=== PATIENT | female | born 1965 | race Caucasian/White ===

== ENCOUNTER 2016-07-28 20:01 | Emergency (ER) | payer OTHER ==
[~2016-07-28] VITALS: Ht 152.4 cm; Wt 40.8 kg
[2016-07-28] MEDS ORDERED: HYDROCODONE/APAP 10/325MG 1 EA TABLET PO ONE (21:30)
[2016-07-28] MEDS ORDERED: ONDANSETRON 4 MG TAB.RAPDIS PO ONE (21:30)
[2016-07-28] MEDS ORDERED: HYDROCODONE/APAP 10/325MG 1 EA TABLET ONE (21:34)
[2016-07-28] MEDS ORDERED: ONDANSETRON 4 MG TAB.RAPDIS ONE (21:34)
[2016-07-28 23:36] VITALS: BP 134/76
== END 2016-07-28 23:37 | disposition home or self-care (01) ==
LOC: ER 20:05
DX: S52.022A Displaced fracture of olecranon process without intraarticular extension of left ulna, initial encounter for closed fracture (principal); B19.20 Unspecified viral hepatitis C without hepatic coma; F17.210 Nicotine dependence, cigarettes, uncomplicated; Z90.49 Acquired absence of other specified parts of digestive tract; W19.XXXA Unspecified fall, initial encounter; Y93.89 Activity, other specified; Y92.89 Other specified places as the place of occurrence of the external cause; Y99.8 Other external cause status
CPT/HCPCS: 29105; 73080; 99284; A4606; Q0162; Z7610

== ENCOUNTER 2017-12-15 23:11 | Inpatient (IN) | payer OTHER ==
[~2017-12-15] VITALS: Ht 152.4 cm; Wt 44.0 kg
--- NOTE | 2017-12-15 23:20 | NUR ---
52 yo female bb self. patient is alert and oriented, c/o left arm abcess s/p IV drug use. patient ambulated to er bed with steady agit, skin warm and dry, resp even and unlabored. patient gowned,placed on cardiac monitor technician. awaiting orders from provider, will continue to monitor
--- NOTE | 2017-12-15 23:28 | NUR ---
md Pedraza at bed side for eval
[2017-12-15] MEDS ORDERED: VANCOMYCIN 1 GM in IV D5W 250 ML IV ONE (23:30)
--- NOTE | 2017-12-16 00:51 | NUR ---
20G left fa iv started, blood sample obtained and sent to lab
[2017-12-16] MEDS ORDERED: VANCOMYCIN 1 GM VIAL ONE (00:52)
[2017-12-16 00:56] LABS: BASOPHILS % (AUTO) 0.3 % (0.0-2.0); EOSINOPHILS % (AUTO) 1.9 % (0.0-6.0); HEMATOCRIT 36 % (33-45); HEMOGLOBIN 12.2 g/dL (11.5-14.8); LYMPHOCYTES # (AUTO) 1.4 /CMM (0.8-4.8); LYMPHOCYTES % (AUTO) 25.1 % (20.0-44.0); MEAN CORPUSCULAR HEMOGLOBIN 28 PG (26.0-33.0); MEAN CORPUSCULAR HGB CONC 33 g/dl (31.0-36.0); MEAN CORPUSCULAR VOLUME 84 fL (82-100); MONOCYTES # (AUTO) 0.7 /CMM (0.1-1.30); MONOCYTES % (AUTO) 11.6 % (2.0-12.0); NEUTROPHILS # (AUTO) 3.5 /CMM (1.8-8.9); NEUTROPHILS % (AUTO) 61.1 % (43.0-81.0); PLATELET COUNT (AUTO) 145 /CMM (150-450); RDW COEFFICIENT OF VARIATION 13.7 (11.5-15.0); RED BLOOD CELL COUNT(AUTO) 4.33 MIL/uL (4.0-5.2); WHITE BLOOD COUNT (AUTO) 5.7 K/uL (4.3-11.0)
[2017-12-16 01:07] LABS: CALCIUM, SERUM 8.4 mg/dL (8.5-10.1); CARBON DIOXIDE 29 mmol/L (21-32); CHLORIDE 105 mmol/L (98-107); CREATININE 1.1 mg/dL (0.6-1.3); GLUCOSE 132 mg/dL (74-106); POTASSIUM 3.1 mmol/L (3.5-5.1); SODIUM SERUM 140 mmol/L (136-145); UREA NITROGEN, BLOOD 36 mg/dL (7-18)
[2017-12-16] MEDS ORDERED: ACETAMINOPHEN 325 MG TABLET PO PRN (01:30)
[2017-12-16] MEDS ORDERED: Z GUARD REMEDY 2 OZ OINT TP PRN (01:30)
[2017-12-16] MEDS ORDERED: LORAZEPAM INJ 2 MG/ML VIAL IV PRN (01:30)
[2017-12-16] MEDS ORDERED: MAGNESIUM HYDROXIDE 30 ML UDC PO PRN (01:30)
[2017-12-16] MEDS ORDERED: VANCOMYCIN 1 GM in IV NS 0.9% 250 ML IV SCH (01:30)
[2017-12-16] MEDS ORDERED: ZOLPIDEM TARTRATE 5 MG TABLET PO PRN (01:30)
[2017-12-16] MEDS ORDERED: POTASSIUM CHLORIDE 20 MEQ TAB.PRT.SR PO ONE ×3 (01:30→01:49)
[2017-12-16] MEDS ORDERED: ONDANSETRON HCL/PF 4 MG/2 ML VIAL IVP PRN (01:30)
[2017-12-16] MEDS ORDERED: HYDROCODONE/APAP 5/325MG 1 EACH TABLET PO PRN (01:30)
[2017-12-16] MEDS ORDERED: MAG HYDROX/AL HYDROX/SIMETH 30 ML UDC PO PRN (01:30)
[2017-12-16] MEDS ORDERED: MORPHINE SULFATE INJ 4 MG/ML DISP.SYRIN ONE (01:47)
[2017-12-16] MEDS: MORPHINE SULFATE INJ 2 MG/ML DISP.SYRIN IV PRN (01:59)
--- NOTE | 2017-12-16 02:15 | NUR ---
RN NOTE RECEIVED PATIENT FROM ER, PATIENT WAS ABLE TO AMBULATE FROM [facility] RO THE BED WITH A STEADY GAIT, ON ROOM AIR, NO RESPIRATORY DISTRESS NOTED, NO PAIN OR DISCOMFORT NOTED, PATIENT IS ALERT/ORIENTED X 4, IV SITE IS PATENT, NO S/S OF INFECTION/INFLAMMATION NOTED, DX CELLULITIS, WOUND CARE CONSULT ORDERED, KEPT SITE CLEANED AND DRY, PICTURE OF THE WOUND IS TAKEN AND PLACED IN THE CHART, VITAL SIGNS TAKEN AND RECORDED, ALL SAFETY MEASURES TAKEN, CALL LIGHT WITHIN REACH, ALL BELONGINGS WITHIN REACH, BED IN THE LOWEST POSITION, SIDE RAILS UP X 2, WILL CONTINUE TO MONITOR PATIENT
--- NOTE | 2017-12-16 02:25 | NUR ---
TRANSPORTED PT TO MS BED WITHOUT INCIDENT
[2017-12-16 03:59] LABS: BILIRUBIN,DIRECT 0.1 mg/dL (0.0-0.2); BILIRUBIN,TOTAL 0.5 mg/dL (0.2-1.0)
[2017-12-16 04:00] VITALS: BP 120/56
[2017-12-16] MEDS ORDERED: FEE PK DOSING 1 MIN EA MC ONE (06:54)
--- NOTE | 2017-12-16 07:30 | NUR ---
RN M/S INITIAL NOTES: RECEIVED PT IN BED SLEEPING, EASY TO AROUSE. NO C/O PAIN OR DISCOMFORT AT THIS TIME. PT ON ROOM AIR, NO SOB NOTED. IV TO LFA PATENT AND INTACT. BED IN LOW LOCKED POSITION, CALL LIGHT WITHIN REACH. PLAN OF CARE DISCUSSED WITH PT. WILL CONTINUE TO MONITOR.
[2017-12-16 08:00] VITALS: BP 134/75
[2017-12-16] MEDS ORDERED: METH10TA2 PO (09:06)
[2017-12-16] MEDS: IV NS 0.9% 1,000 ML IV PRN (10:58)
--- NOTE | 2017-12-16 11:00 | NUR ---
SCHOOL PSYCHOLOGY PROFESSOR AT BEDSIDE FOR PT ASSESSMENT.
[2017-12-16] MEDS: VANCOMYCIN 500 MG in IV D5W 100 ML IV SCH ×2 (11:18→23:08)
--- NOTE | 2017-12-16 13:00 | NUR ---
ID DIRECTOR OF GOLF AT BEDSIDE FOR PT ASSESSMENT
[2017-12-16 14:34] LABS: APPEARANCE,URINE CLEAR (CLEAR); BILIRUBIN,URINE NEGATIVE (NEGATIVE); BLOOD, URINE NEGATIVE Ery/uL (NEGATIVE); COLOR,URINE YELLOW (YELLOW); KETONES,URINE NEGATIVE (NEGATIVE); LEUKOCYTE ESTERASE ,URINE TRACE (NEGATIVE); NITRITE, URINE NEGATIVE (NEGATIVE); PROTEIN,URINE NEGATIVE (NEGATIVE); UGLUCOSE TRACE mg/dL (NEGATIVE); UROBILINOGEN,URINE >=8.0 EU/dL (0.2)
[2017-12-16 14:55] LABS: BACTERIA,URINE 2+ /HPF (None Seen); RBC,URINE 0-2 /HPF (0-2)
[2017-12-16 16:00] VITALS: BP 122/60
[2017-12-16] MEDS ORDERED: VANCOMYCIN 0.75 GM in IV D5W 250 ML IV SCH (18:00)
--- NOTE | 2017-12-16 19:00 | NUR ---
RN M/S END NOTES: PT REMAINS IN BED AT THIS TIME, SLEEPING BUT EASY TO AROUSE. DENIES ANY PAIN OR DISCOMFORT. REMAINS ON ROOM AIR, SATURATING >95%. NO SOB NOTED AT THIS TIME. IV FLUIDS RUNNING TO LFA ORDERED. BED IN LOW LOCKED POSITION, CALL LIGHT WITHIN REACH. WILL ENDORSE TO PM SHIFT FOR CONTINUITY OF CARE.
[2017-12-16 20:00] VITALS: BP 122/60
--- NOTE | 2017-12-16 20:00 | NUR ---
PRABHJOT RN NOTES RECEIVED BEDSIDE REPORT FROM AM NURSE. PT IN BED A/O X4, NO C/O PAIN OR DISCOMFORT AT THIS TIME. PT ON ROOM AIR, NO SOB NOTED AT THIS TIME.IV TO LFA PATENT AND INTACT. BED IN LOW LOCKED POSITION, CALL LIGHT WITHIN REACH. WILL CONTINUE TO MONITOR.
[2017-12-16] MEDS: SULFAMETH/TRIMETH 800/160 MG 1 UDTAB TABLET PO SCH (21:36)
[2017-12-17] MEDS: IV NS 0.9% 1,000 ML IV PRN ×2 (01:58→17:45)
[2017-12-17 04:00] VITALS: BP 118/75
--- NOTE | 2017-12-17 05:40 | NUR ---
PRABHJOT RN NOTES PT IS IN BED AT THIS TIME, SLEEPING BUT EASY TO AROUSE. DENIES ANY PAIN OR DISCOMFORT AT THIS TIME. REMAINS ON ROOM AIR, SATURATING >95%. NO SOB NOTED AT THIS TIME. IV FLUIDS RUNNING TO LFA ORDERED. BED IN LOW LOCKED POSITION, CALL LIGHT WITHIN REACH. WILL ENDORSE TO AM SHIFT FOR NORMA.
[2017-12-17 06:25] LABS: CALCIUM, SERUM 7.7 mg/dL (8.5-10.1); CREATININE 0.8 mg/dL (0.6-1.3); MAGNESIUM 1.5 mg/dL (1.8-2.4); PHOSPHORUS 3.9 mg/dL (2.5-4.9)
[2017-12-17 06:38] LABS: BASOPHILS % (AUTO) 0.4 % (0.0-2.0); EOSINOPHILS % (AUTO) 1.9 % (0.0-6.0); HEMATOCRIT 34 % (33-45); HEMOGLOBIN 11.3 g/dL (11.5-14.8); LYMPHOCYTES # (AUTO) 1.3 /CMM (0.8-4.8); LYMPHOCYTES % (AUTO) 29.2 % (20.0-44.0); MEAN CORPUSCULAR HEMOGLOBIN 28 PG (26.0-33.0); MEAN CORPUSCULAR HGB CONC 33 g/dl (31.0-36.0); MEAN CORPUSCULAR VOLUME 85 fL (82-100); MONOCYTES # (AUTO) 0.5 /CMM (0.1-1.30); MONOCYTES % (AUTO) 11.1 % (2.0-12.0); NEUTROPHILS # (AUTO) 2.7 /CMM (1.8-8.9); NEUTROPHILS % (AUTO) 57.4 % (43.0-81.0); PLATELET COUNT (AUTO) 125 /CMM (150-450); RDW COEFFICIENT OF VARIATION 13.9 (11.5-15.0); RED BLOOD CELL COUNT(AUTO) 4.06 MIL/uL (4.0-5.2); WHITE BLOOD COUNT (AUTO) 4.6 K/uL (4.3-11.0)
--- NOTE | 2017-12-17 07:30 | NUR ---
RN NOTES RECEIVED PATIENT IN BED ASLEEP WITH BREATHING NORMAL, EVEN AND UNLABORED. NO SOB NOTED. NO ACUTE DISTRESS NOTED. IV IS PATENT AND INTACT, RUNNING IVF PER ORDER. KEPT CLEAN, DRY AND COMFORTABLE. ALL NEEDS ATTENDED. SAFETY MEASURE OBSERVED. CALL LIGHT WITH IN REACH. WILL CONT TO MONITOR.
[2017-12-17 08:00] VITALS: BP 127/66
[2017-12-17] MEDS: SULFAMETH/TRIMETH 800/160 MG 1 UDTAB TABLET PO SCH ×2 (08:53→21:12)
[2017-12-17] MEDS: NICOTINE PATCH (14MG) 14 MG PATCH.TD24 TD SCH (08:53)
[2017-12-17 09:00] VITALS: BP 127/66
--- NOTE | 2017-12-17 09:31 | NUR ---
WOUND CARE CONSULT: PT PRESENTS WITH LEFT UPPER ARM WOUND, PRESENT ON ADMISSION. RECOMMEND SURGICAL CONSULT. RECOMMENDATIONS MADE FOR WOUND CARE AND SKIN PROTECTION. DISCUSSED WITH NURSING STAFF. WILL SEE PRN. KRAFT IN AGREEMENT WITH PLAN OF CARE. Addendum: 12/17/17 at 0932 by JESSICA JASMINE WNDNU Amended: Links added.
[2017-12-17] MEDS ORDERED: LIDOCAINE 1%-EPI 1:100,000 20 ML VIAL TP ONE (11:00)
[2017-12-17] MEDS ORDERED: SILVER NITRATE APPLICATOR 1 EA BOX TP SCH (11:00)
[2017-12-17] MEDS: VANCOMYCIN 500 MG in IV D5W 100 ML IV SCH ×2 (11:43→22:47)
[2017-12-17] MEDS: Magnesium 1GM/D5W 100ML PREMIX 100 ML IV SCH ×2 (13:07→15:05)
[2017-12-17] MEDS: MORPHINE SULFATE INJ 2 MG/ML DISP.SYRIN IV PRN ×2 (15:06→21:13)
[2017-12-17 16:00] VITALS: BP 125/62
--- NOTE | 2017-12-17 16:09 | NUR ---
Social service consult requested by JARED An for drug use. Pt. is a 52 year old female who was admitted to [facility] for cellulitis. SW met with pt. bedside. Pt. is alert and oriented x 4. Pt. was cooperative with SW during the assessment. Per Pt. she lives with friend's in an apartment in [place]. Pt. has a psychiatric diagnosis of Bipolar but does not take any medications. Pt. denies suicidal and homicidal ideations and visual/auditory hallucinations at this time. Pt. is a heroin user and used heroin two weeks ago. Pt. states she has been on Methadone for the past two months. SW offered pt. referrals to drug treatment programs and tried to encourage pt. to attend one. However, pt. declined. Pt. last attended a drug treatment program 4 or 5 years ago. No other social service needs are requested at this time. SW is available, if needed.
[2017-12-17 16:53] VITALS: BP 125/56
--- NOTE | 2017-12-17 18:53 | NUR ---
RN NOTES PATIENT ENDORSED TO NEXT SHIFT IN STABLE CONDITION FOR CONTINUITY OF CARE. NO SIGNIFICANT CHANGES NOTED. KEPT CLEAN, DRY AND COMFORTABLE. ALL NEEDS ATTENDED. SAFETY MEASURE OBSERVED. CALL LIGHT WITH IN REACH. WILL CONT TO MONITOR.
--- NOTE | 2017-12-17 19:00 | NUR ---
MS RN OPENING NOTE RECEIVE PATIENT AWAKE IN BED, A/O X3, STABLE NO FACIAL GRIMACING NOTED FOR PAIN. NO SOB OR DISTRESS NOTED, CALL LIGHT WITHIN REACH. SAFETY MEASURES IMPLEMENTED. WILL CONTINUE TO MONITOR THROUGHOUT SHIFT.
[2017-12-17 20:00] VITALS: BP 126/74
[2017-12-18] MEDS: MORPHINE SULFATE INJ 2 MG/ML DISP.SYRIN IV PRN ×4 (03:28→22:46)
[2017-12-18 04:00] VITALS: BP 132/80
--- NOTE | 2017-12-18 06:18 | NUR ---
MS RN CLOSING NOTES IN BED ASLEEP AND EASILY AWAKEN, NO COMPLAINTS OF PAIN, NO DISTRESS OR SOB AT THIS TIME. NO COMPLAINTS OF CHEST PAIN. NURSING CARE RENDERED. NEEDS ATTENDED, SAFETY PRECAUTIONS IN PLACE, BED IN LOWEST LOCKED POSITION, X2 SIDE RAILS UP, AND CALL LIGHT WITHIN REACH. WILL ENDORSE TO DAY SHIFT NURSE FOR CONTINUITY OF CARE.
[2017-12-18 07:07] LABS: BASOPHILS % (AUTO) 0.4 % (0.0-2.0); EOSINOPHILS % (AUTO) 1.6 % (0.0-6.0); HEMATOCRIT 36 % (33-45); LYMPHOCYTES # (AUTO) 2.1 /CMM (0.8-4.8); LYMPHOCYTES % (AUTO) 31.3 % (20.0-44.0); MEAN CORPUSCULAR HEMOGLOBIN 28 PG (26.0-33.0); MEAN CORPUSCULAR HGB CONC 33 g/dl (31.0-36.0); MEAN CORPUSCULAR VOLUME 84 fL (82-100); MONOCYTES # (AUTO) 0.6 /CMM (0.1-1.30); MONOCYTES % (AUTO) 8.8 % (2.0-12.0); NEUTROPHILS # (AUTO) 3.9 /CMM (1.8-8.9); NEUTROPHILS % (AUTO) 57.9 % (43.0-81.0); PLATELET COUNT (AUTO) 123 /CMM (150-450); RDW COEFFICIENT OF VARIATION 14.7 (11.5-15.0); RED BLOOD CELL COUNT(AUTO) 4.27 MIL/uL (4.0-5.2); WHITE BLOOD COUNT (AUTO) 6.7 K/uL (4.3-11.0)
[2017-12-18 07:27] LABS: ALBUMIN 2.2 g/dL (3.4-5.0); CALCIUM, SERUM 7.7 mg/dL (8.5-10.1); CREATININE 0.8 mg/dL (0.6-1.3); MAGNESIUM 1.8 mg/dL (1.8-2.4); PHOSPHORUS 3.9 mg/dL (2.5-4.9); POTASSIUM 4.3 mmol/L (3.5-5.1)
--- NOTE | 2017-12-18 07:30 | NUR ---
DOLPHIN RESEARCHER INITIAL NOTES RECEIVED PATIENT SLEEPING IN BED, EASILY AROUSABLE, ON ROOM AIR, NO DISTRESS NOTED, NO SOB, NO PAIN AT THIS TIME, RACHEAL CELLULITES, IV R HAND 22G, NS @ 75 ML/HR, BED IN LOW AND LOCKED POSITION, CALL LIGHT WITHIN REACH, WILL CONTINUE TO MONITOR.
[2017-12-18 08:00] VITALS: BP 143/76
[2017-12-18] MEDS: SULFAMETH/TRIMETH 800/160 MG 1 UDTAB TABLET PO SCH (09:00)
[2017-12-18] MEDS: NICOTINE PATCH (14MG) 14 MG PATCH.TD24 TD SCH (09:00)
[2017-12-18] MEDS: METHADONE HCL 10 MG TABLET PO SCH (09:26)
[2017-12-18] MEDS: VANCOMYCIN 500 MG in IV D5W 100 ML IV SCH (11:15)
[2017-12-18 16:00] VITALS: BP 143/66
[2017-12-18] MEDS ORDERED: SULF1TAB47 PO (16:28)
[2017-12-18] MEDS ORDERED: CEPH-570 PO (16:28)
--- NOTE | 2017-12-18 18:32 | NUR ---
STATION ATTENDANT END NOTES PATIENT RESTING IN BED, PAIN MEDICATIONS GIVEN NEEDED, WOUND CARE DONE, ALL NEEDS MET ALL QUESTIONS ANSWERED, WILL ENDORSE TO DISPLAY DECORATOR FOR CONTINUITY OF CARE.
--- NOTE | 2017-12-18 19:30 | NUR ---
MS/RN OPENING NOTES PT RECEIVED AWAKE, HOB ELEVATED. VISITOR AT BEDSIDE. A/OX4. ON ROOM AIR, BREATHING EVEN AND UNLABORED. DENIES SOB, NOTES SOME PAIN TO RACHEAL 09/22, OFFERED PAIN MEDICATION BUT DOES NOT WANT AT THIS TIME. RACHEAL DRESSING C/D/I. IV TO RFA PATENT AND INTACT, IVF ON HOLD AT THIS TIME. PT REQUESTING TO RESTART FLUIDS ALITTLE LATER. BED IN LOW/LOCKED POSITION WITH CALL LIGHT IN REACH. SIDE RAILS UPX2. WILL CONTINUE TO MONITOR
[2017-12-18 20:00] VITALS: BP 149/85
[2017-12-18] MEDS: AMOX/CLAVULANATE 875 MG TABLET PO SCH (20:36)
--- NOTE | 2017-12-18 21:04 | NUR ---
MS/RN NOTES PT WENT TO SMOKE WITH VISITOR AND RIVETER HELPER.
--- NOTE | 2017-12-18 22:47 | NUR ---
MS/RN NOTES PT C/O 01/22 PAIN TO [facility]. ADMINISTERED PRN MORPHINE ORDERED. WILL MONITOR FOR EFFECTIVENESS. IVF RESUMED ORDERED
[2017-12-19 04:00] VITALS: BP 146/64
--- NOTE | 2017-12-19 06:40 | NUR ---
MS/RN CLOSING NOTES PT RESTING COMFORTABLY IN BED. A/OX4. REMAINS ON RA, BREATHING EVEN AND UNLABORED. NO DISTRESS OR PAIN NOTED AT THIS TIME. RACHEAL DRESSING C/D/I. IV TO RFA PATENT AND INTACT. NO SIGNIFICANT CHANGES OVERNIGHT. SLEPT WELL DURING THE NIGHT. FOR DC PLANNING TODAY. BED IN LOW/LOCKED POSITION WITH CALL LIGHT IN REACH. SIDE RAILS UXP2. WILL ENDORSE TO DAY SHIFT RN NORMA.
--- NOTE | 2017-12-19 07:45 | NUR ---
MS RN NOTE: RECEIVED PATIENT IN BED, AWAKE, ALERT AND ABLE TO VERBALIZED HER NEEDS. RESPIRATION IS EVEN AND UNLABORED. NO SHORTNESS OF BREATH NOTED. ABLE TO USE THE TOILET. (R) FORE ARM IV LINE INTACT AND PATENT INFUSING WITH NS @75ML/HR. DENIED ANY PAIN AT THIS TIME. HOB ELEVATED. CALL LIGHT WITHIN REACH. NEEDS ANTICIPATED.
[2017-12-19 08:00] VITALS: BP 139/72
[2017-12-19] MEDS: NICOTINE PATCH (14MG) 14 MG PATCH.TD24 TD SCH (08:31)
[2017-12-19] MEDS: AMOX/CLAVULANATE 875 MG TABLET PO SCH (08:31)
[2017-12-19] MEDS: METHADONE HCL 10 MG TABLET PO SCH (08:32)
[2017-12-19] MEDS ORDERED: AMOX-430 PO (10:52)
[2017-12-19] MEDS ORDERED: LACT1CAP72 PO (10:52)
--- NOTE | 2017-12-19 13:20 | NUR ---
MS RN NOTE: PATIENT WAS DISCHARGED TO HOME AND EXIT CARE WAS PROVIDED. ALL DISCHARGE INSTRUCTION WAS PROVIDED AND PATIENT SIGNED HER DISCHARGE PAPERWORK. EMPHASIZED WITH HER THE IMPORTANCE OF FOLLOWING-UP WITH HER PCP IN 1 WEEK. SHE WAS ALSO GIVEN MEDICAL SUPPLIES IN ORDER TO CLEAN UP HER (L) UA WOUND UNTIL SHE GETS TO SEE THE PRIMARY DOCTOR. PATIENT HAS NO QUESTIONS REGARDING HER DISCHARGE. REFUSED THE VACCINE. (L) UA WOUND WAS TAKEN PICTURE AND FILED ON THE CHART. WOUND TREATMENT DONE AND PATIENT TOLERATED IT. (R) FOREARM IV LINE REMOVED AND COVERED WITH DRY GAUZE AND SECURED WITH TAPE. PATIENT WAS ACCOMPANIED BY HER EX- UPON DISCHARGE VIA PRIVATE CAR. ALL BELONGINGS WERE RELEASED UPON DISCHARGE. PATIENT WAS AWARE THAT SHE NEEDS TO PICK-UP HER PRESCRIPTION AT THE [facility] LISTED ON HER RECORD. SHE UNDERSTOOD IT.
== END 2017-12-19 13:20 | disposition home or self-care (01) | DRG 364 ==
LOC: ER 23:14 → MEDSG1 12-16 01:55
PROVIDERS: ADMIT Internal Medicine; ATTEND Internal Medicine
PROC: 0KB60ZZ Excision of Left Shoulder Muscle, Open Approach (ICD-10-PCS; principal; 2017-12-17)
DX: L03.114 Cellulitis of left upper limb (principal); E87.2 Acidosis; N39.0 Urinary tract infection, site not specified; L02.414 Cutaneous abscess of left upper limb; E87.6 Hypokalemia; E86.0 Dehydration; F17.210 Nicotine dependence, cigarettes, uncomplicated; R73.9 Hyperglycemia, unspecified; Z86.19 Personal history of other infectious and parasitic diseases; F19.10 Other psychoactive substance abuse, uncomplicated; F11.10 Opioid abuse, uncomplicated; V89.2XXS Person injured in unspecified motor-vehicle accident, traffic, sequela; G89.29 Other chronic pain; B96.89 Other specified bacterial agents as the cause of diseases classified elsewhere; E44.1 Mild protein-calorie malnutrition; Z68.1 Body mass index [BMI] 19.9 or less, adult
CPT/HCPCS: 36415; 80048-TC; 80202-TC; 81000-TC; 82040-TC; 82247-TC; 82248-TC; 83605-TC; 83735-TC; 84100-TC; 85025-TC; 87040-TC; 87070-TC; 87081-TC; 87086-TC; A4217; A4606; A6253; A6402; A6403; J2270; J3370; J3475; J3490; J7030; J7050; J7060; Z7610

== ENCOUNTER 2018-11-01 20:41 | Emergency (ER) ==
[~2018-11-01] VITALS: Ht 152.4 cm; Wt 36.3 kg
[~2018-11-01 20:41] MED LIST: AMOX-430 PO; LACT1CAP72 PO; METH10TA2 PO
[2018-11-01 21:04] VITALS: BP 154/98
== END 2018-11-01 23:46 | disposition home or self-care (01) ==
LOC: ER 20:50
DX: L03.114 Cellulitis of left upper limb (principal); L02.414 Cutaneous abscess of left upper limb; F19.10 Other psychoactive substance abuse, uncomplicated; F11.10 Opioid abuse, uncomplicated; F17.210 Nicotine dependence, cigarettes, uncomplicated; Z86.19 Personal history of other infectious and parasitic diseases

== ENCOUNTER 2019-07-19 15:32 | Emergency (ER) | payer OTHER ==
[~2019-07-19] VITALS: Ht 149.9 cm; Wt 44.9 kg
--- NOTE | 2019-07-19 15:36 | NUR ---
called for triage not in the waiting room
[2019-07-19] MEDS ORDERED: ACETAMINOPHEN 325 MG TABLET PO ONE (16:00)
--- NOTE | 2019-07-19 16:00 | NUR ---
cough, congestion, and rib pain with coughing x 2 weeks. Patient a/ox4, breathing even and unlabored, o2 sat on room air 100%.
[2019-07-19] MEDS ORDERED: ACETAMINOPHEN ES 500 MG TABLET ONE (16:14)
[2019-07-19 16:49] VITALS: BP 135/78
--- NOTE | 2019-07-19 16:49 | NUR ---
given food and tap card.
--- NOTE | 2019-07-19 16:49 | NUR ---
Patient given written and verbal discharge instructions. Patient verbalizes understanding of instructions. Patient is ambulatory with steady gait. Refuses offer of snf placement. Patient given list of available shelters in surrounding area.
== END 2019-07-19 16:49 | disposition home or self-care (01) ==
LOC: ER 15:32
DX: J18.9 Pneumonia, unspecified organism (principal); F17.210 Nicotine dependence, cigarettes, uncomplicated; Z86.19 Personal history of other infectious and parasitic diseases; Z79.899 Other long term (current) drug therapy
CPT/HCPCS: 71045-TC

== ENCOUNTER 2019-12-31 13:03 | Emergency (ER) | payer OTHER ==
[~2019-12-31] VITALS: Ht 152.4 cm; Wt 39.0 kg
[2019-12-31 13:12] VITALS: BP 150/83
--- NOTE | 2019-12-31 13:16 | NUR ---
SEEN AND EXAMINED BY .
--- NOTE | 2019-12-31 13:25 | NUR ---
ELECTRIC SPOT WELDER AT BEDSIDE FOR XRAY.
[2019-12-31] MEDS ORDERED: IBUPROFEN 600 MG TABLET PO ONE ×2 (13:30→13:31)
--- NOTE | 2019-12-31 13:57 | NUR ---
Patient discharged to home in stable condition. Written and verbal after care instructions given. Patient verbalizes understanding of instruction.
== END 2019-12-31 13:59 | disposition home or self-care (01) ==
LOC: ER 13:06
DX: S22.32XA Fracture of one rib, left side, initial encounter for closed fracture (principal); S40.212A Abrasion of left shoulder, initial encounter; M54.2 Cervicalgia; F17.210 Nicotine dependence, cigarettes, uncomplicated; Z86.19 Personal history of other infectious and parasitic diseases; Z79.899 Other long term (current) drug therapy; W22.09XA Striking against other stationary object, initial encounter; Y93.55 Activity, bike riding; Y92.89 Other specified places as the place of occurrence of the external cause; Y99.8 Other external cause status
CPT/HCPCS: 71100-TC